=== PATIENT | female | born 1965 | race Caucasian/White ===

== ENCOUNTER 2021-10-09 12:33 | Emergency (ER) | payer OTHER, MEDICAID, SELFPAY ==
[2021-10-09] VITALS (15 sets, daily range): BP systolic 116–162; BP diastolic 69–87; PULSE 54–83; RESP 10–35; TEMP 36.8–37; O2SAT 92–100; BMI 41.3; BMI 41.2
--- NOTE | 2021-10-09 12:53 | DI.CT.S_ITS ---
PROCEDURE: CT HEAD/BRAIN WO CON INDICATIONS: vision change, headache x15 minutes, resolved TECHNIQUE: Noncontrast 4.5 mm thick angled axial sections acquired from the foramen magnum to the vertex, with coronal and sagittal reformats. For radiation dose reduction, the following was used: automated exposure control, adjustment of mA and/or kV according to patient size. COMPARISON: None. FINDINGS: Image quality: Excellent. CSF spaces: Basal cisterns are patent. No extra-axial fluid collections. Ventricles are normal in size and shape. Brain: There is a 1 cm partially calcified mass in the left parietal lobe. There is no significant vasogenic edema. No midline shift. No intracranial hemorrhage. Palmer-white matter interface is normal. Skull and face: Calvarium and visualized facial bones are intact, without suspicious lesions. Sinuses: Visualized sinuses and mastoids are clear. IMPRESSION: 1. A 1 cm partially calcified mass in the left parietal lobe without significant vasogenic edema. Differential diagnoses include low-grade neoplasm versus vascular malformation. The patient has a known cavernous malformation per Dr. Henry. No comparison examinations are available. Given new clinical symptoms, recommend MRI with and without contrast for follow-up evaluation. Consider neurosurgical consultation after brain MRI. The result was discussed with Dr. Henry. Dictated by: Debra Forte M.D. on 10/09/2021 at 12:26 Approved by: Debra Forte M.D. on 10/09/2021 at 12:44
[2021-10-09] MEDS: SODIUM CHLORIDE 0.9% 1,000 ML 150 ML IV (13:09)
[2021-10-09 13:13] LABS: Add Manual Diff / Slide Review NO; Basophils Absolute Auto 0 /uL (0-100); Basophils Percent Auto 0.5 % (0-2); Eosinophils Absolute Auto 100 /uL (0-450); Eosinophils Percent Auto 1.6 % (2-4); Hemoglobin 15.6 g/dL (12.0-16.0); Lymphocytes Absolute Auto 2700 /uL (1100-4500); Lymphocytes Percent Auto 35.1 % (25-40); Mean Corpuscular HGB Conc 33.8 % (30-36); Mean Corpuscular Hemoglobin 30.3 PG (26-34); Mean Corpuscular Volume 89.6 fL (80-100); Monocytes Absolute Auto 700 /uL (0-900); Monocytes Percent Auto 8.6 % (3-14); Neutrophils Absolute Auto 4200 /uL (1500-7000); Neutrophils Percent Auto 54.2 % (50-75); Platelet Count 189 X10^3/uL (150-400); Red Blood Cell Count 5.13 X10^6/uL (4.0-5.2); Red Cell Distribution Width 13.1 % (11.6-14.8); White Blood Cell Count 7.7 X10^3/uL (4.5-11.0)
[2021-10-09 13:25] LABS: Alanine Aminotransferase 17 IU/L (<35); Albumin 4.6 g/dL (3.5-5.0); Albumin Globulin Ratio 1.5 (1.0-2.8); Alkaline Phosphatase 74 U/L (38-126); Aspartate Aminotransferase 19 IU/L (14-36); BUN Creatinine Ratio 25.8 (6-22); Bilirubin Total 0.9 mg/dL (0.2-1.3); Blood Urea Nitrogen 24 mg/dL (7-17); C-Reactive Protein Quant 0.5 mg/dL (<1.0); Calcium 9.3 mg/dL (8.4-10.2); Carbon Dioxide 28 mmol/L (22-32); Chloride 103 mmol/L (98-107); Creatine Kinase 59 U/L (30-135); Estimated Glomerular Filt Rate > 60 mL/min (>60); Glucose 104 mg/dL (70-100); HEMOLYSIS < 15 (0-50); Potassium 3.8 mmol/L (3.4-5.1); Sodium 139 mmol/L (137-145); Total Protein 7.6 g/dL (6.3-8.2)
--- NOTE | 2021-10-09 13:25 | ED_ITS ---
HPI - Neuro Symptoms/Deficit General Chief Complaint: Neuro Symptoms/Deficit Stated Complaint: Blind spots in vision, headache Time Seen by Provider: 10/09/21 12:53 Source: patient and family Mode of arrival: Ambulatory History of Present Illness HPI Narrative: 55-year-old female nonsmoker with noncontributory medical history presents with her significant other and a chief complaint of a sudden onset visual complaint that started while at rest approximately 15-20 minutes prior to her arrival. She describes spots in her vision that she could not see but not blurring, floaters or flashers or a visual field cut. Soon after the vision change started she developed an occipital headache. The vision change had resolved prior to her arrival with a headache persists. She denies obvious provocation, palliation or radiation of her head pain and states that she does not routinely get headaches. She denies any trauma, fever or neck pain. She denies trouble speech, finding words or extremity numbness, tingling or weakness. She has not activated as a code stroke as she is not currently having symptoms consistent with stroke. She denies any recent change in medication but has changed her diet a bit since the of the year, admitting that she is eating healthier. She denies any change in alcohol or caffeine consumption On Anticoagulants: No Review of Systems Review of Systems Narrative: GENERAL: Denies chills, fatigue, malaise, fever, sweats. HEENT: See HPI RESPIRATORY: Denies dyspnea, cough, wheezing, hemoptysis, sputum. CARDIOVASCULAR: Denies chest pain, palpitations, orthopnea, edema, GASTROINTESTINAL: Denies nausea, vomiting, abdominal pain, diarrhea, constipation, melena. : Denies dysuria, frequency, incontinence, hematuria, urinary retention. MUSCULOSKELETAL: denies weakness, joint pain, or bony pain SKIN: Denies rash, skin lesions, or other NEUROLOGIC: See HPI PSYCHIATRIC: No concerning psychosocial issues. 12 point review of systems is negative except for those stated above Hematologic/Lymphatic On Anticoagulants: No Patient History Social History Smoking Status: Never smoker Smoking Status: Never smoker Substance Use Type: does not use Exam Narrative Exam Narrative: GENERAL: [55] year old patient appears stated age. Well-developed patient, in mild distress. HEAD: Atraumatic. Normocephalic. EYES: Pupils equal round and reactive. Extraocular motions intact. No scleral icterus. No injection or drainage. ENT: Nose without bleeding, purulent drainage. Throat without erythema, tonsillar hypertrophy or exudate. Airway patent. NECK: Trachea midline. Non tender CARDIOVASCULAR: Regular rate and rhythm without murmurs, gallops, or rubs. RESPIRATORY: Clear to auscultation. Breath sounds equal bilaterally. No wheezes, rales, or rhonchi. GASTROINTESTINAL: Abdomen soft, non-tender, nondistended. EXTREMITIES: No edema or joint tenderness. BACK: Nontender without deformity or crepitance. No flank tenderness. NEURO: AOx3. SKIN: No rash or erythema of visible areas NIH Stroke Scale 1a. LOC: Patient is alert and keenly responsive (0) 1b. LOC Questions: Patient answers both LOC questions accurately (0) 1c. LOC Commands: Patient performs both tasks correctly (0) 2. Best Gaze: Normal (0) 3. Visual: No visual loss (0) 4. Facial palsy: Normal symmetrical movements (0) 5. Motor arm: No drift (0) 6. Motor leg: No drift (0) 7. Limb ataxia: Absent (0) 8. Sensory: Normal (0) 9. Best language: No aphasia; normal (0) 10. Dysarthria: Normal (0) 11. Extinction and inattention: No abnormality (0) NIHSS: 0 Initial Vital Signs Initial Vital Signs: Vital Signs Temperature 98.2 F 10/09/21 12:37 Pulse Rate 83 10/09/21 12:37 Respiratory Rate 18 10/09/21 12:37 Blood Pressure 151/87 H 10/09/21 12:37 Pulse Oximetry 100 10/09/21 12:37 Course Orders Ordered: ED Orders 10/09/21 13:43 MR stroke Stat Discontinued Medications Sodium Chloride (Normal Saline 0.9%) 1,000 mls @ 150 mls/hr IV CONT SHELTON Last Infusion: 10/09/21 16:48 Dose: 150 mls/hr Documented by: Admin: 10/09/21 13:09 Dose: 150 mls/hr Documented by: JAME Vital Signs Vital signs: Vital Signs - 8 hr 10/09/21 15:00 10/09/21 15:02 10/09/21 15:30 Pulse Rate 64 61 62 Respiratory Rate 10 L 35 H 19 Blood Pressure 160/73 H Pulse Oximetry 97 100 98 10/09/21 15:31 10/09/21 16:33 10/09/21 16:34 Pulse Rate 60 60 59 L Respiratory Rate 13 Blood Pressure 162/77 H 120/74 Pulse Oximetry 100 97 100 10/09/21 17:00 10/09/21 17:30 10/09/21 18:00 Pulse Rate 56 L 55 L 54 L Respiratory Rate Blood Pressure 116/69 120/69 Pulse Oximetry 100 100 100 10/09/21 18:30 Pulse Rate 56 L Respiratory Rate Blood Pressure 120/74 Pulse Oximetry 92 MDM - Neuro Symptoms/Deficit Lab Data Result diagrams: 10/09/21 12:53 10/09/21 12:53 Labs: Lab Results 10/09/21 10/09/21 Range/Units 12:53 12:53 WBC 7.7 (4.5-11.0) X10^3/uL RBC 5.13 (4.0-5.2) X10^6/uL Hgb 15.6 (12.0-16.0) g/dL Hct 46.0 (36-46) % MCV 89.6 (80-100) fL MCH 30.3 (26-34) PG MCHC 33.8 (30-36) % RDW 13.1 (11.6-14.8) % Plt Count 189 (150-400) X10^3/uL Neut % (Auto) 54.2 (50-75) % Lymph % (Auto) 35.1 (25-40) % [place] % (Auto) 8.6 (3-14) % Eos % (Auto) 1.6 L (2-4) % Baso % (Auto) 0.5 (0-2) % Neut # (Auto) 4200 (5194-1433) /uL Lymph # (Auto) 2700 (5007-0425) /uL [place] # (Auto) 700 (0-900) /uL Eos # (Auto) 100 (0-450) /uL Baso # (Auto) 0 (0-100) /uL ESR 3 (0-20) MM/HR Sodium 139 (137-145) mmol/L Potassium 3.8 (3.4-5.1) mmol/L Chloride 103 (98-107) mmol/L Carbon Dioxide 28 (22-32) mmol/L BUN 24 H (7-17) mg/dL Creatinine 0.93 (0.52-1.04) mg/dL Estimated GFR > 60 (>60) mL/min BUN/Creatinine Ratio 25.8 H (6-22) Glucose 104 H (70-100) mg/dL Calcium 9.3 (8.4-10.2) mg/dL Total Bilirubin 0.9 (0.2-1.3) mg/dL AST 19 (14-36) IU/L ALT 17 (<35) IU/L Alkaline Phosphatase 74 (38-126) U/L Total Creatine Kinase 59 (30-135) U/L CK-MB (CK-2) TNP CK-MB (CK-2) Rel Index TNP Troponin I < 0.012 (0.01-0.034) ng/mL C-Reactive Protein 0.5 (<1.0) mg/dL Total Protein 7.6 (6.3-8.2) g/dL Albumin 4.6 (3.5-5.0) g/dL Globulin 3.0 (1.7-4.1) g/dL Albumin/Globulin Ratio 1.5 (1.0-2.8) MDM Narrative Medical decision making narrative: 55-year-old female him on in her normal state of health until developing transient visual field problem lasting approximately 15 minutes prior to arrival. She denies other neurologic symptoms other than vague headache. Stroke scale is 0, she has had no visual change or other neurologic symptom for the duration of her visit. Imaging was unremarkable including stroke MRI. Stroke versus bleed versus stress response versus others considered. Extensive return precautions discussed and questions answered to her apparent satisfaction Discharge Plan Departure Patient Disposition: Home Clinical Impression: Vision abnormalities Activity Restrictions/Additional Instructions: *You have been diagnosed with [ transient vision change without evidence of stroke. As we discussed your history, physical exam, labs and imaging are very reassuring] *What to do: *Please continue to take your regular medications as directed. [ ] New medication prescriptions sent to your pharmacy: [ ] [ ] New medication written as a paper prescription [ x] No new medications given *Please follow up with your primary care provider in 2-3 days, call for an appointment. Let them know you were seen in the Emergency Department and that we ask that you be seen in follow up. We will electronically transmit a record of today's note if your PCP is in our system *If you do not have a primary care provider please contact the [facility] Resource line at [phone]. They will ask some questions about your medical history and help get you set up with a doctor in the community. *Return to Emergency Department if you should have any new, worsening or concerning symptoms, such as [fever greater than 101 F, shaking chills, worsening pain, persistent vomiting or other bothersome symptoms]
[2021-10-09 13:34] LABS: Troponin I < 0.012 ng/mL (0.01-0.034)
[2021-10-09 13:35] LABS: Erythrocyte Sedimentation Rate 3 MM/HR (0-20)
--- NOTE | 2021-10-09 13:43 | DI.MRI.S_ITS ---
PROCEDURE: MR STROKE Pre- and post-contrast brain MRI, non-contrast brain MR angiogram, pre- and postcontrast neck MR angiogram INDICATIONS: vision change, headache, history of cavernoma TECHNIQUE: Brain: Noncontrast axial T1 spin echo, axial T2 fast spin echo, sagittal and axial FLAIR, coronal T2 fast spin echo, axial gradient echo, axial diffusion and ADC through the brain. After the administration of contrast, axial 3D VIBE of the cranial vasculature and brain. Brain MRA: Non-contrast 3-D time of flight MR angiogram, with multiple acbjopo-opfcikkob-nshgqfohvn (MIP) reformats performed. Neck MRA: Axial and sagittal TruFISP through the neck. Coronal dynamic MR angiogram during administration of contrast in the arterial and venous phases, with 3-dimenstional txbitou-czolhbcku-zfnrhiosob (MIP) reformats constructed from subtraction images. COMPARISON: [facility], CT, CT HEAD/BRAIN WO CON, 10/09/2021, 13:08. FINDINGS: Image quality: Excellent. BRAIN: CSF spaces: Ventricles are normal in size and shape. Basal cisterns are patent. No extra-axial fluid collections. Brain: There is a 1.2 cm cavernous malformation in the left parietal white matter with associated susceptibility artifact but no significant mass effect. No intracranial bleeds. Diffusion weighted images show no acute ischemic insults. There are multiple foci of T2/FLAIR hyperintensity in periventricular white matter, compatible with chronic small vessel ischemic changes. Brainstem appears normal. Normal intravascular flow voids are present. No abnormal intracranial enhancement. Skull and face: Calvarial marrow signal is normal. Orbits appear normal. Sinuses: Left maxillary sinus mucosal thickening. Mastoids are clear. BRAIN MR ANGIOGRAM: Anterior circulation: Intracranial internal carotid arteries are normal in size and enhancement. The flow within the paired anterior cerebral arteries is normal and symmetric. The flow within the middle cerebral arteries is normal and symmetric. The anterior communicating artery is seen. No stenoses, occlusions, or aneurysms. Posterior circulation: The visualized portions of the vertebral arteries demonstrate normal caliber, and join to form a normal appearing basilar artery. The flow within the posterior cerebral arteries is normal and symmetric. No stenoses, occlusions, or aneurysms. NECK MR ANGIOGRAM: Carotids: Great vessels demonstrate a conventional anatomy as they arise from the aortic arch. The origins of the common carotid arteries appear patent. The calibers and courses of both common carotid arteries are normal. The bifurcation regions appear normal bilaterally. The internal carotid arteries demonstrate normal course and caliber. Posterior circulation: The origins of the vertebral arteries appear patent. More superior portions of both vertebral arteries demonstrate normal course and caliber, and join to form a normal appearing basilar artery. Miscellaneous: Subclavian arteries appear patent. Pre-contrast images through the neck show no soft tissue abnormalities. Trace right pleural effusion. IMPRESSION: BRAIN MRI: 1. A 1.2 cm cavernoma in the left parietal white matter. 2. Multiple foci of T2/FLAIR hyperintensity in periventricular white matter, most likely secondary to chronic small vessel ischemic changes. 3. No acute stroke. 4. Mild left maxillary sinus mucosal thickening. BRAIN MR ANGIOGRAM: 1. No hemodynamic significant stenosis in anterior or posterior circulations. NECK MR ANGIOGRAM: 2. No hemodynamic significant stenosis in cervical carotid arteries or vertebral arteries bilaterally. Dictated by: Debra Forte M.D. on 10/09/2021 at 15:54 Approved by: Debra Forte M.D. on 10/09/2021 at 16:03
== END 2021-10-09 18:56 | disposition home or self-care (01) ==
PROVIDERS: Emergency Provider Emergency Medicine
DX: H53.9 Unspecified visual disturbance (principal); R07.9 Chest pain, unspecified; R51.9 Headache, unspecified
CPT/HCPCS: 36415; 70450; 70548; 70553; 80053; 82550; 84484; 85025; 85651; 86140; 93005; 99284; 99285; A9579